=== PATIENT | female | born 1965 | race Caucasian/White ===

== ENCOUNTER 2018-01-19 15:19 | Emergency (ER) | payer BC, SELFPAY ==
[2018-01-19 15:49] VITALS: BP 121/72; PULSE 87; RESP 20; TEMP 37.2; O2SAT 97; BMI 36.3
--- NOTE | 2018-01-19 17:11 | HMH.EDUTC ---
[facility] [place] Clinical Impression: Gastroenteritis Disposition: Home, Self-Care Condition on Discharge: Fair Instructions: DI for Viral Gastroenteritis -- Adult Referrals: Zhao Jerry MD [Primary Care Provider] - Time of Disposition: 17:14 Medical Decision Making - Joni Inquiry Pt receiving controlled substance: No Vital Signs: 01/19/18 15:49 Temperature 98.9 F Temperature Source Oral Pulse Rate [Right Radial] 87 Respiratory Rate 20 Blood Pressure [Right Arm] 121/72 Blood Pressure Mean [Right Arm] 88 02 Sat by Pulse Oximetry 97 Oxygen Delivery Method Room Air Orders (Tests/Meds): ED MEDICATIONS Generic Name Dose Route Start Last Admin Trade Name Freq PRN Reason Stop Dose Admin Sodium Chloride 1,000 mls @ 999 mls/hr 01/19/18 16:30 01/19/18 16:17 Sod Chlor 0.9% 1000ml Bag IV 01/19/18 17:30 999 mls/hr .Q1H1M TOSHA Administration Discontinued Medications Generic Name Dose Route Start Last Admin Trade Name Freq PRN Reason Stop Dose Admin Promethazine HCl 25 mg 01/19/18 16:16 01/19/18 16:17 Phenergan 25mg/Ml 1ml Vial IV 01/19/18 16:17 25 mg ONCE ONE Administration Sodium Chloride 25 ml 01/19/18 16:16 01/19/18 16:17 Sod Chlor 0.9% 25ml Bag IV 01/19/18 16:17 25 ml ONCE ONE Administration Medical Decision Narrative: Improved with IV fluids and Phenerghan [facility] [place] - General Stated complaint: vomitting Time Seen by Provider: 01/19/18 16:00 Mode of Arrival: Family Vehicle Source of Information: Patient Limitations: No Limitations Description of Symptoms (Recalled from Triage Doc. by RN): PT C/O FEVER,VOMITING,LIGHT HEADEDNESS SINCE LAST NIGHT. HEENT Symptoms (Recalled from RN notes): Yes (FEVER,LIGHT HEADEDNESS) Resp Symptoms (Recalled from RN notes): No Skin Symptoms (Recalled from RN notes): No MS Symptoms (Recalled from RN notes): No Functional Status (Recalled from RN notes): NA - History of Present Illness Provider Complaint: Vomiting, diarrhea since this am. Vomited water. Feels lightheaded. - Related Data Home Medications Medication Instructions Recorded Confirmed Levothyroxine Sodium 125 mcg PO DAILY 01/19/18 01/19/18 [Levothyroxine 125mcg (0.125mg) Tab] Allergies Allergy/AdvReac Type Severity Reaction Status Date / Time vancomycin Allergy Severe RED MAN Verified 01/19/18 15:53 SYNDROME morphine [MORPHINE] Allergy Unknown NA-NAUSEA/V Verified 01/19/18 15:53 OMITING Penicillins Allergy Unknown Verified 01/19/18 15:53 clindamycin AdvReac Intermediate NA-NAUSEA Verified 01/19/18 15:53 - Worker's Comp Is this a Worker's Comp case?: No [facility] History I have reviewed the patient's past medical history: Yes Medical History: Denies:: Cancer, Diabetes Mellitus Type 1, Diabetes Mellitus Type 2, MRSA Other Medical History: Reports: Thyroid Disease Laterality Cases: Bilateral: Tonsillectomy Amputation: No Fractures: No - Social History Smoking Status: Never smoker Alcohol Intake: never - Psychiatric History Expresses thoughts of harming self/others: None Suicide Plan Description: No Plan ROS Obtained: Yes All systems reviewed & no additional complaints - Constitutional Constitutional: Reports fever(s), Reports malaise - Gastrointestinal Gastrointestingal: Reports: diarrhea, vomiting - Neurologic Neurologic: Reports dizziness Physical Exam - General General appearance: alert, in no apparent distress - Head Head exam: atraumatic, normocephalic, normal inspection - Eye Eye exam: Present: normal appearance, PERRL, EOMI - ENT ENT exam: Present: normal exam, normal oropharynx, mucous membranes moist, TM's normal bilaterally, normal external ear exam - Neck Neck exam: Present: normal inspection, full ROM, trachea midline. Absent: meningismus, lymphadenopathy - Chest Chest inspection: Present: normal inspection, symmetric chest wall rise. Absent: tenderness - Respiratory
--- NOTE | 2018-01-19 17:14 | ED_ITS ---
[facility] [place] Clinical Impression: Gastroenteritis Disposition: Home, Self-Care Condition on Discharge: Fair Instructions: DI for Viral Gastroenteritis -- Adult Referrals: Zhao Jerry MD [Primary Care Provider] - Time of Disposition: 17:14 Medical Decision Making - Joni Inquiry Pt receiving controlled substance: No Vital Signs: 01/19/18 15:49 Temperature 98.9 F Temperature Source Oral Pulse Rate [Right Radial] 87 Respiratory Rate 20 Blood Pressure [Right Arm] 121/72 Blood Pressure Mean [Right Arm] 88 02 Sat by Pulse Oximetry 97 Oxygen Delivery Method Room Air Orders (Tests/Meds): ED MEDICATIONS Generic Name Dose Route Start Last Admin Trade Name Freq PRN Reason Stop Dose Admin Sodium Chloride 1,000 mls @ 999 mls/hr 01/19/18 16:30 01/19/18 16:17 Sod Chlor 0.9% 1000ml Bag IV 01/19/18 17:30 999 mls/hr .Q1H1M TOSHA Administration Discontinued Medications Generic Name Dose Route Start Last Admin Trade Name Freq PRN Reason Stop Dose Admin Promethazine HCl 25 mg 01/19/18 16:16 01/19/18 16:17 Phenergan 25mg/Ml 1ml Vial IV 01/19/18 16:17 25 mg ONCE ONE Administration Sodium Chloride 25 ml 01/19/18 16:16 01/19/18 16:17 Sod Chlor 0.9% 25ml Bag IV 01/19/18 16:17 25 ml ONCE ONE Administration Medical Decision Narrative: Improved with IV fluids and Phenerghan [facility] [place] - General Stated complaint: vomitting Time Seen by Provider: 01/19/18 16:00 Mode of Arrival: Family Vehicle Source of Information: Patient Limitations: No Limitations Description of Symptoms (Recalled from Triage Doc. by RN): PT C/O FEVER,VOMITING ,LIGHT HEADEDNESS SINCE LAST NIGHT. HEENT Symptoms (Recalled from RN notes): Yes (FEVER,LIGHT HEADEDNESS) Resp Symptoms (Recalled from RN notes): No Skin Symptoms (Recalled from RN notes): No MS Symptoms (Recalled from RN notes): No Functional Status (Recalled from RN notes): NA - History of Present Illness Provider Complaint: Vomiting, diarrhea since this am. Vomited water. Feels lightheaded. - Related Data Home Medications Medication Instructions Recorded Confirmed Levothyroxine Sodium 125 mcg PO DAILY 01/19/18 01/19/18 [Levothyroxine 125mcg (0.125mg) Tab] Allergies Allergy/AdvReac Type Severity Reaction Status Date / Time vancomycin Allergy Severe RED MAN Verified 01/19/18 15:53 SYNDROME morphine [MORPHINE] Allergy Unknown NA-NAUSEA/V Verified 01/19/18 15:53 OMITING Penicillins Allergy Unknown Verified 01/19/18 15:53 clindamycin AdvReac Intermediate NA-NAUSEA Verified 01/19/18 15:53 - Worker's Comp Is this a Worker's Comp case?: No H History I have reviewed the patient's past medical history: Yes Medical History: Denies:: Cancer, Diabetes Mellitus Type 1, Diabetes Mellitus Type 2, MRSA Other Medical History: Reports: Thyroid Disease Laterality Cases: Bilateral: Tonsillectomy Amputation: No Fractures: No - Social History Smoking Status: Never smoker Alcohol Intake: never - Psychiatric History Expresses thoughts of harming self/others: None Suicide Plan Description: No Plan ROS Obtained: Yes All systems reviewed & no additional complaints
[2018-01-19 17:28] VITALS: BP 115/78; PULSE 80; RESP 20; TEMP 37.3; O2SAT 100
== END 2018-01-19 17:31 | disposition home or self-care (01) ==
PROVIDERS: Emergency Provider Physician Assistant; Family Provider Family Medicine; PCP Family Medicine
DX: K52.9 Noninfective gastroenteritis and colitis, unspecified (principal)
CPT/HCPCS: 96374; 96375; 99201

== ENCOUNTER → 2018-09-22 09:07 | Outpatient (CLI) | payer BC, SELFPAY ==
[2018-09-22 09:48] LABS: Basophils % 0.8 % (0.1-2.0); Eosinophils # 0.1 K/mm3 (0.0-0.4); Eosinophils % 1.5 % (0.1-12.0); Hematocrit 36.9 % (37.0-47.0); Hemoglobin 12.5 g/dL (12.2-16.2); Lymphocytes # 1.2 K/mm3 (0.7-4.5); Lymphocytes % 30.6 % (10-50); Mean Corpuscular HGB Conc 33.8 g/dL (31.8-35.4); Mean Corpuscular Hemoglobin 29.1 pg (27.0-31.2); Mean Corpuscular Volume 86.1 fl (81-99); Mean Platelet Volume 8.1 fl (7.4-10.4); Monocytes # 0.2 K/mm3 (0.1-1.0); Monocytes % 4.3 % (1.7-9.3); Neutrophils # 2.4 K/mm3 (1.8-7.8); Neutrophils % 62.8 % (37.0-80.0); Platelet Count 193 K/mm3 (142-424); Red Blood Count 4.29 M/mm3 (4.20-5.40); Red Cell Distribution Width 13.3 % (11.5-17.5); White Blood Count 3.9 K/mm3 (4.8-10.8)
[2018-09-22 11:17] LABS: Alanine Aminotransferase 47 U/L (12-78); Albumin Level 3.6 gm/dL (3.4-5.0); Albumin/Globulin Ratio 1.1 (1.1-1.8); Alkaline Phosphatase 98 U/L (46-116); Anion Gap 10.9 mEq/L (5-15); Aspartate Amino Transferase 21 U/L (15-37); Bilirubin,Total 0.3 mg/dL (0.2-1.0); Blood Urea Nitrogen 13 mg/dL (7-18); Calcium 8.6 mg/dL (8.5-10.1); Carbon Dioxide 29 mmol/L (21.0-32.0); Chloride 106 mmol/L (98-107); Chol/HDL Ratio 2.8 (1-3.5); Cholesterol 131 mg/dL (140-200); Creatinine,Serum 0.59 mg/dL (0.55-1.02); Estimated Glomerular Filt Rate 106 ml/min (>60); Free T4 (Free Thyroxine) 1.01 ng/dl (0.76-1.46); GFR (African American) 129 ML/MIN (>60); Globulin 3.3 gm/dl (1.3-3.2); Glucose 79 mg/dL (74-106); HDL Cholesterol 47 mg/dL (29-89); LDL Cholesterol 58 mg/dL (0-130); Potassium 3.9 mmoL/L (3.5-5.1); Sodium 142 mmol/L (136-145); Thyroid Stimulating Hormone 1.12 uIU/ml (0.358-3.740); Total Protein,Serum 6.9 gm/dL (6.4-8.2); Triglycerides 128 mg/dL (30-200); VLDL Cholesterol 26 mg/dL (0-40)
[2018-09-23 09:59] LABS: Vitamin D 25 Hydroxy 42.3 ng/mL (30.0-100.0)
== END ==
PROVIDERS: Visit Provider Physician Assistant
DX: E03.9 Hypothyroidism, unspecified (principal); E55.9 Vitamin D deficiency, unspecified; R94.5 Abnormal results of liver function studies; Z13.220 Encounter for screening for lipoid disorders
CPT/HCPCS: 36415; 80053; 80061; 82652; 84439; 84443; 85025

== ENCOUNTER → 2019-09-19 10:09 | Outpatient (CLI) | payer BC, SELFPAY ==
[2019-09-19 11:45] LABS: Alanine Aminotransferase 30 U/L (12-78); Albumin Level 3.9 gm/dL (3.4-5.0); Albumin/Globulin Ratio 1.2 (1.1-1.8); Alkaline Phosphatase 96 U/L (46-116); Anion Gap 11.1 mEq/L (5-15); Aspartate Amino Transferase 19 U/L (15-37); Bilirubin,Total 0.6 mg/dL (0.2-1.0); Blood Urea Nitrogen 17 mg/dL (7-18); Calcium 9.1 mg/dL (8.5-10.1); Carbon Dioxide 27 mmol/L (21.0-32.0); Chloride 106 mmol/L (98-107); Chol/HDL Ratio 2.5 (1-3.5); Cholesterol 152 mg/dL (140-200); Creatinine,Serum 0.69 mg/dL (0.55-1.02); Estimated Glomerular Filt Rate 88 ml/min (>60); Free T4 (Free Thyroxine) 1.03 ng/dl (0.76-1.46); GFR (African American) 107 ML/MIN (>60); Globulin 3.3 gm/dl (1.3-3.2); Glucose 88 mg/dL (74-106); HDL Cholesterol 60 mg/dL (29-89); LDL Cholesterol 72 mg/dL (0-130); Potassium 4.1 mmoL/L (3.5-5.1); Sodium 140 mmol/L (136-145); Thyroid Stimulating Hormone 2.74 uIU/ml (0.358-3.740); Total Protein,Serum 7.2 gm/dL (6.4-8.2); Triglycerides 100 mg/dL (30-200); VLDL Cholesterol 20 mg/dL (0-40)
[2019-09-21 13:56] LABS: Vitamin D 25 Hydroxy 41.7 ng/mL (30.0-100.0)
== END ==
PROVIDERS: Visit Provider Family Medicine
DX: E03.9 Hypothyroidism, unspecified (principal); E55.9 Vitamin D deficiency, unspecified; R94.5 Abnormal results of liver function studies
CPT/HCPCS: 36415; 80053; 80061; 82652; 84439; 84443

== ENCOUNTER → 2020-05-23 12:13 | Outpatient (CLI) | payer BC, SELFPAY ==
--- NOTE | 2020-05-23 12:18 | XR_ITS ---
PROCEDURE: XR FOOT WT BEARING LT 3V CLINICAL INDICATION: left foot pain Foot pain COMPARISON: No exams were available for comparison FINDINGS: No fracture or dislocation. No lytic or blastic change. There is normal mineralization. 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 There is a prominent calcaneal spur and there is mild spurring of the anterior distal tibia. IMPRESSION: Degenerative changes, no acute finding Dictated by: Obey Wang MD 05/23/2020 13:20 Electronically signed by Obey Wang MD in [place] 05/23/2020 13:20
== END ==
PROVIDERS: PCP Family Medicine; Visit Provider Orthopaedic Surgery
DX: M79.672 Pain in left foot (principal)
CPT/HCPCS: 73630

== ENCOUNTER → 2021-07-31 12:27 | Outpatient (CLI) | payer BC, SELFPAY ==
[2021-07-31 14:22] LABS: Coronavirus 19 IgG Antibody Positive (Negative); Coronavirus 19 IgM Antibody Negative (Negative)
== END ==
PROVIDERS: Visit Provider Family Medicine
DX: Z01.84 Encounter for antibody response examination
CPT/HCPCS: 36415; 86328

== ENCOUNTER → 2021-10-18 09:17 | Outpatient (CLI) | payer BC, SELFPAY ==
[2021-10-18 10:27] LABS: Chloride 105 mmol/L (98-107); Potassium 4.3 mmoL/L (3.5-5.1); Sodium 142 mmol/L (136-145)
[2021-10-18 10:29] LABS: Alanine Aminotransferase 26 U/L (12-78); Alkaline Phosphatase 94 U/L (38-126); Aspartate Amino Transferase 26 U/L (14-36); Bilirubin,Total 0.5 mg/dl (0.2-1.3); Blood Urea Nitrogen 17 mg/dl (7-17); Estimated Glomerular Filt Rate 86 ml/min (>60); GFR (African American) 104 ML/MIN (>60)
[2021-10-18 10:30] LABS: Albumin Level 4.2 g/dl (3.5-5.0); Albumin/Globulin Ratio 1.6 (1.1-1.8); Anion Gap 11.3 mEq/L (5-15); Calcium 8.9 mg/dl (8.4-10.2); Carbon Dioxide 30 mmol/L (22.0-30.0); Cholesterol 139 mg/dl (140-200); Globulin 2.6 g/dL (1.3-3.2); Glucose 92 mg/dl (74-100); HDL Cholesterol 46 mg/dl (40-60); Total Protein,Serum 6.8 g/dl (6.3-8.2); Triglycerides 131 mg/dl (30-150); VLDL Cholesterol 26 mg/dL (0-40)
[2021-10-18 10:41] LABS: Direct LDL Cholesterol 73.87 mg/dL (100-129)
[2021-10-18 10:44] LABS: Free T4 (Free Thyroxine) 1.28 ng/dl (0.78-2.19)
[2021-10-18 10:46] LABS: 25-OH Vitamin D, Total 48.8 ng/mL (30-100)
[2021-10-18 10:58] LABS: Thyroid Stimulating Hormone 2.46 uIU/mL (0.465-4.68)
== END ==
PROVIDERS: Visit Provider Family Medicine
DX: E03.9 Hypothyroidism, unspecified (principal); E55.9 Vitamin D deficiency, unspecified; Z13.1 Encounter for screening for diabetes mellitus; Z79.899 Other long term (current) drug therapy
CPT/HCPCS: 36415; 80053; 80061; 82306; 84439; 84443

== ENCOUNTER 2022-10-27 08:31 | Emergency (ER) | payer BC, SELFPAY ==
[2022-10-27 08:40] VITALS: BP 143/85; PULSE 87; RESP 18; TEMP 36.7; O2SAT 98; BMI 39.4
--- NOTE | 2022-10-27 08:53 | EXP.UTC ---
Discharge Plan Disposition Patient Disposition: Home, Self-Care Condition: Good Prescriptions Prescriptions: New methylprednisolone [Medrol (Karsten)] 4 mg tablets,dose pack See Rx Instructions .Route .COMPLEX 6 Days Qty: 21 0RF Rx Instructions: taper pack; azithromycin [Zithromax Z-Karsten] 250 mg tablet See Rx Instructions .ROUTE .COMPLEX 5 Days Qty: 6 0RF Rx Instructions: For 250 mg dose pack: take 500 mg today (day 1), then 250 mg for 4 days (days 2-5) No Action loratadine 10 mg tablet 10 mg PO DAILY Label Comments: TAKE ONE TABLET BY MOUTH EVERY DAY montelukast 10 mg tablet 10 mg PO DAILY Label Comments: TAKE ONE TABLET BY MOUTH EVERY DAY levothyroxine 125 MCG tablet 125 mcg PO DAILY Contrave 8-90 mg Tablet Extended Release 1 tab PO HS Rx Instructions: and also take 2 tablets every morning - week 3 of therapy Referrals Follow up/Referrals: Zhao Jerry MD [Primary Care Provider] - See instructions Activity Restrictions/Add. Instructions Additional Instructions/Restrictions: *Monitor Temp, Over the counter Motrin or Tylenol as directed/as needed Tylenol every 4 hours and Motrin every 6 hours (as long as your family doctor has told you that you can take it) for fever or pain. and straight to ER if unable to lower temp less than 101.0 after medication given *Warm salt water gargles may help to soothe the throat *Throat Lozenges? *Warm fluids like tea with honey may help to soothe the throat? *Sleep elevated *Humidifier/Vaporizer Your throat swab was sent for culture. Those results are typically sent to your primary care. Be sure to follow up in 2-3 days with your family doctor/primary care physician if no improvement so they can review those result and treat if necessary. If you don?t have a primary care doctor, I recommend you get one but in the mean time, you will have to return to a walk in clinic Follow up IMMEDIATELY for new or worsening symptoms or no Noticeable improvement over the next 48-72 hours. 911 for difficulty breathing or swallowing Clinical Impressions Clinical Impression: Sinusitis Instructions Patient Instructions: Sore Throat, Sinusitis Discharge ED Provider: Jenn Whalen [facility] HPI General Stated complaint: sore throat, congestion, h/a Time Seen by Provider: 10/27/22 08:53 History of Present Illness Provider Complaint: Patient states that she has been having sore throat like she is swallowing glass for several days Feels like her lymph nodes are swollen and has nasal congestion States that it has got worse over the last couple of days so today she came in to get checked out Related Data Home Medications Medication Instructions Recorded Confirmed levothyroxine 125 mcg tablet 125 mcg PO DAILY THYROID 01/19/18 10/27/22 loratadine 10 mg tablet 10 mg PO DAILY Allergy symptoms 12/13/20 10/27/22 montelukast 10 mg tablet 10 mg PO DAILY Allergy symptoms 12/13/20 10/27/22 naltrexone 8 mg-bupropion 90 mg 1 tab PO HS Weight loss 10/27/22 10/27/22 tablet,extended release (Contrave) Previous Rx's Medication Instructions Recorded azithromycin 250 mg tablet See Rx Instructions PO .COMPLEX 5 10/27/22 (Zithromax Z-Karsten) days #6 tabs methylprednisolone 4 mg tablets in See Rx Instructions .Route 10/27/22 a dose pack (Medrol (Karsten)) .COMPLEX 6 days #21 tabs Allergies Allergy/AdvReac Type Severity Reaction Status Date / Time vancomycin Allergy Severe RED MAN Verified 12/13/20 17:55 SYNDROME morphine [MORPHINE] Allergy Unknown NA-NAUSEA/V Verified 12/13/20 17:55 OMITING Penicillins Allergy Unknown Verified 12/13/20 17:55 clindamycin AdvReac Intermediate NA-NAUSEA Verified 12/13/20 17:55 [facility] Disclaimer: The information contained in this section may have been updated after the patient was seen, as this information can be updated by other users. Medical History (Updated 1
[2022-10-27 09:01] VITALS: BP 143/85; PULSE 87; RESP 18; TEMP 36.7; O2SAT 98
[2022-10-27 09:02] LABS: UTC Strep Screen (Rapid) Negative (Negative)
== END 2022-10-27 09:07 | disposition home or self-care (01) ==
PROVIDERS: Emergency Provider Nurse Practitioner; PCP Family Medicine
DX: J32.9 Chronic sinusitis, unspecified (principal)
CPT/HCPCS: 87880; 99212; G0463

== ENCOUNTER → 2022-11-14 09:51 | Outpatient (CLI) | payer BC, SELFPAY ==
--- NOTE | 2022-11-14 09:55 | MM_ITS ---
PROCEDURE INFORMATION: Exam: Bilateral Screening 3D Mammography Exam date and time: 11/14/2022 10:03 AM Age: 57 years old Clinical indication: Screening examination TECHNIQUE: Imaging protocol: Bilateral Screening tomosynthesis and 2D mammography including computer-aided detection (CAD) when performed. COMPARISON: 1. MG DMDXUAVL DIG MAMM-DX UNI ADD VIEWS-LT 08/21/2012 11:40 AM 2. MG DMSB DIGITAL MAMM-SCREEN BILATERAL 05/01/2012 4:54 PM 3. MG DIGMAMMS MAMMOGRAM SCREEN-STRAIGHTENING ROLL OPERATOR N/C 10/14/2007 5:16 PM FINDINGS: MAMMOGRAPHY: Breast composition: There are scattered areas of fibroglandular density. Mass: No suspicious masses. Architectural distortion: No suspicious distortion. Calcifications: No suspicious calcifications. Asymmetric density: None. Skin thickening: None. Axillary adenopathy: None. IMPRESSION: No mammographic evidence of malignancy. Annual screening is recommended unless otherwise clinically indicated. ASSESSMENT: BI-RADS Category 1: Negative
== END ==
PROVIDERS: PCP Family Medicine; Visit Provider Family Medicine
DX: Z12.31 Encounter for screening mammogram for malignant neoplasm of breast (principal)
CPT/HCPCS: 77063; 77067

== ENCOUNTER 2024-11-19 13:17 | Outpatient (CLI) | payer BC, SELFPAY ==
--- NOTE | 2024-11-19 13:21 | MM_ITS ---
PROCEDURE INFORMATION: Exam: MG Bilateral Screening 3D Mammography Exam date and time: 11/19/2024 1:16 PM Age: 59 years old Clinical indication: Screening examination TECHNIQUE: Imaging protocol: Bilateral Screening tomosynthesis and 2D mammography including computer-aided detection (CAD) when performed. COMPARISON: 1. MG MM DIG SCREENING MAMM BI W/CAD 11/14/2022 10:03 AM 2. MG DMDXUAVL DIG MAMM-DX UNI ADD VIEWS-LT 08/21/2012 11:40 AM FINDINGS: MAMMOGRAPHY: Breast composition: There are scattered areas of fibroglandular density. Mass: No suspicious masses. Architectural distortion: None. Calcifications: No suspicious calcifications. Asymmetric density: None. Skin thickening: None. Axillary adenopathy: None. IMPRESSION: No mammographic evidence of malignancy. Annual screening is recommended unless otherwise clinically indicated. ASSESSMENT: BI-RADS Category 1: Negative.
== END 2024-11-19 23:59 | disposition home or self-care (01) ==
LOC: RAD 13:18
PROVIDERS: PCP Family Medicine; Visit Provider Family Medicine
DX: Z12.31 Encounter for screening mammogram for malignant neoplasm of breast (principal)
CPT/HCPCS: 77063; 77067